=== PATIENT | female | born 1985 | race Caucasian/White ===

== ENCOUNTER 2017-04-12 20:19 | Emergency (ER) | payer SELFPAY ==
[~2017-04-12] VITALS: Ht 157.5 cm; Wt 68.0 kg
[2017-04-12 20:43] VITALS: BP 135/90
== END 2017-04-12 21:44 | disposition home or self-care (01) ==
LOC: ER 20:38
DX: L08.9 Local infection of the skin and subcutaneous tissue, unspecified (principal)
CPT/HCPCS: 99283

== ENCOUNTER 2017-07-24 19:15 | Inpatient (IN) | payer SELFPAY ==
[~2017-07-24] VITALS: Ht 144.8 cm; Wt 70.3 kg
[2017-07-25] MEDS ORDERED: SODIUM CHLORIDE 0.9% 1,000 ML IV ONE (01:25)
[2017-07-25 01:35] LABS: CLARITY URINE CLEAR (CLEAR); COLOR URINE YELLOW (YELLOW); KETONES URINE NEGATIVE (NEGATIVE); LEUKOCYTE ESTERASE URINE NEGATIVE (NEGATIVE); NITRITE URINE NEGATIVE (NEGATIVE); OCCULT BLOOD URINE NEGATIVE (NEGATIVE); PROTEIN URINE NEGATIVE (NEGATIVE); SPECIFIC GRAVITY URINE 1.022 (1.005-1.030); UROBILINOGEN URINE 0.2 E.U./dL (0.2-1.0)
[2017-07-25 01:48] LABS: *AMPHETAMINES SCREEN URINE NEGATIVE (NEGATIVE); *BARBITURATES SCREEN URINE NEGATIVE (NEGATIVE); *BENZODIAZEPINES SCREEN URINE NEGATIVE (NEGATIVE); *COCAINE SCREEN URINE NEGATIVE (NEGATIVE); CANNABINOID URINE SCREEN NEGATIVE (NEGATIVE); METHADONE URINE SCREEN NEGATIVE (NEGATIVE); OPIATES URINE SCREEN NEGATIVE (NEGATIVE); PHENCYCLIDINE URINE SCREEN NEGATIVE (NEGATIVE)
[2017-07-25 01:57] LABS: BASOPHILS % 0.4 % (0.0-2.0); EOSINOPHILS % 2.3 % (0.0-5.0); HEMATOCRIT. 40.4 % (36.0-48.0); HEMOGLOBIN. 13.7 g/dL (12.0-16.0); LYMPHOCYTES % 46.4 % (20.0-50.0); MEAN CORPUSCULAR VOLUME 85.2 fL (81.0-99.0); MEAN PLATELET VOLUME 8.9 fl (7.4-10.4); MONOCYTES % 4.5 % (2.0-8.0); NEUTROPHILS % 46.4 % (40.0-76.0); PLATELET 244 x1000/uL (130-400); RED BLOOD CELL COUNT 4.74 mill/uL (4.2-5.4); RED CELL DISTRIBUTION WIDTH 13.4 % (11.6-14.6)
[2017-07-25 01:58] LABS: CHLORIDE 103 mEq/L (98-107)
[2017-07-25 02:01] LABS: PROTHROMBIN TIME 10.2 sec (9.4-11.6)
[2017-07-25 02:07] LABS: CREATINE KINASE 52 IU/L (26-192); ETHANOL BLOOD < 10 mg/dL
[2017-07-25] MEDS ORDERED: DIAZEPAM 5 MG TABLET PO ONE (07:15)
[2017-07-25] MEDS ORDERED: MECLIZINE 25MG TABLET PO ONE (07:15)
[2017-07-25] MEDS ORDERED: DOCUSATE SODIUM 100MG CAPSULE PO PRN (11:30)
[2017-07-25] MEDS ORDERED: GUAIFENESIN 200MG/10ML SUGAR FREE UDC PO PRN (11:30)
[2017-07-25] MEDS ORDERED: MAGNESIUM/ALUMINUM HYDROXIDE/SIMETHICONE 30ML UDC PO PRN (11:30)
[2017-07-25] MEDS ORDERED: LORAZEPAM 2MG/ML CPJ IV PRN (11:30)
[2017-07-25] MEDS ORDERED: HYDROCODONE/ACETAMINOPHEN 5/325MG TABLET PO PRN (11:30)
[2017-07-25] MEDS ORDERED: ONDANSETRON HCL 4MG/2ML VIAL IV PRN (11:30)
[2017-07-25] MEDS ORDERED: DIPHENHYDRAMINE 50MG/ML VIAL IV PRN (11:30)
[2017-07-25] MEDS ORDERED: IPRATROPIUM/ALBUTEROL 0.5-3(2.5)MG/3ML NEB INH PRN (11:30)
[2017-07-25] MEDS ORDERED: ACETAMINOPHEN 325MG TABLET PO PRN (11:30)
[2017-07-25] MEDS ORDERED: CLONIDINE 0.1MG TABLET PO PRN (11:30)
[2017-07-25 19:08] LABS: CHLORIDE 105 mEq/L (98-107)
[2017-07-25 19:09] LABS: TROPONIN I < 0.02 ng/mL (0.00-0.04)
[2017-07-25] MEDS ORDERED: NA PHOS,M-B/NA PHOS,DI-BA ENEMA 118ML PR PRN (20:00)
[2017-07-25] MEDS ORDERED: SODIUM CHLORIDE 0.45% 1,000 ML IV SCH (22:04)
[2017-07-25 22:08] VITALS: BP_SYST 111; BP_SYST 112; BP_DIAS 63; BP_DIAS 70
[2017-07-25] MEDS ORDERED: MECLIZINE 25MG TABLET PO PRN (22:45)
[2017-07-26] VITALS: BP 112/70
[2017-07-26 04:00] VITALS: BP 100/63
[2017-07-26 06:58] VITALS: BP 112/70
[2017-07-26 07:34] LABS: BASOPHILS % 0.4 % (0.0-2.0); EOSINOPHILS % 2.5 % (0.0-5.0); HEMATOCRIT. 38.9 % (36.0-48.0); HEMOGLOBIN. 13.3 g/dL (12.0-16.0); LYMPHOCYTES % 51.2 % (20.0-50.0); MEAN CORPUSCULAR HEMOGLOBIN 28.9 pg (28.0-32.0); MEAN CORPUSCULAR VOLUME 84.8 fL (81.0-99.0); MEAN PLATELET VOLUME 8.9 fl (7.4-10.4); MONOCYTES % 4.7 % (2.0-8.0); NEUTROPHILS % 41.2 % (40.0-76.0); PLATELET 230 x1000/uL (130-400); RED BLOOD CELL COUNT 4.59 mill/uL (4.2-5.4); RED CELL DISTRIBUTION WIDTH 13.4 % (11.6-14.6)
[2017-07-26 07:49] LABS: CHLORIDE 104 mEq/L (98-107)
[2017-07-26 08:00] VITALS: BP 107/67
[2017-07-26 08:06] LABS: HDL CHOLESTEROL 39 mg/dL (40-59); LDL CHOLESTEROL 113 mg/dL (5-100); T4 FREE 0.84 ng/dL (0.76-1.46)
[2017-07-26] MEDS ORDERED: ASPIRIN 81MG EC TABLET PO SCH (09:00)
[2017-07-26] MEDS ORDERED: PNEUMOCOCCAL 23-VAL P-SAC VAC 0.5 ML IM ONE (12:00)
[2017-07-26] MEDS ORDERED: INFLUENZA VIRUS VACCINE 0.5ML SYR IM ONE (12:00)
== END 2017-07-26 13:15 | disposition home or self-care (01) | DRG 111 ==
LOC: ER 21:48 → 8WST 07-25 11:15 → ENRESERV 07-25 20:05
PROVIDERS: ADMIT Internal Medicine; ATTEND Internal Medicine
DX: R42 Dizziness and giddiness (principal); E86.0 Dehydration; H55.00 Unspecified nystagmus
CPT/HCPCS: 36415; 70450; 80048; 80053; 80061; 80305; 81003; 82550; 84439; 84443; 84484; 85025; 85610; 90686; 90732; 93005; 96360; 99285; G0482; J2060; J8597

== ENCOUNTER 2017-09-14 04:03 | Emergency (ER) | payer SELFPAY ==
[~2017-09-14] VITALS: Ht 149.9 cm; Wt 72.0 kg
[2017-09-14] MEDS ORDERED: KETOROLAC 30MG/ML VIAL IV ONE (08:00)
[2017-09-14] MEDS ORDERED: METOCLOPRAMIDE HCL 10MG/2ML VIAL IV ONE (08:00)
[2017-09-14] MEDS ORDERED: SODIUM CHLORIDE 0.9% 1,000 ML IV ONE (08:00)
[2017-09-14] MEDS ORDERED: MECLIZINE 25MG TABLET PO ONE (08:15)
[2017-09-14 10:02] VITALS: BP 98/54
== END 2017-09-14 10:08 | disposition home or self-care (01) ==
LOC: ER 04:03
DX: H57.11 Ocular pain, right eye (principal); R42 Dizziness and giddiness; R51 Headache
CPT/HCPCS: 93005; 96361; 96374; 96375; 99284; J1885; J2765; J7030; Z7610; J8597

== ENCOUNTER 2017-12-17 13:36 | Emergency (ER) | payer SELFPAY ==
[~2017-12-17] VITALS: Ht 157.5 cm; Wt 73.4 kg
[2017-12-17 20:25] VITALS: BP 108/75
== END 2017-12-17 20:26 | disposition home or self-care (01) ==
LOC: ER 18:05
DX: B86 Scabies (principal)
CPT/HCPCS: 81025; 99283